=== PATIENT | male | born 1960 | race Caucasian/White ===

== ENCOUNTER → 2023-09-13 14:47 | Outpatient (REF) | payer OTHER, SELFPAY | LOC: MRI 3T 14:47 | PROVIDERS: ATTENDING PHYSICIAN Physician Assistant Surgical; FAMILY PHYSICIAN Family Medicine | DX: M25.571 Pain in right ankle and joints of right foot (principal) | CPT/HCPCS: 73721 ==

== ENCOUNTER 2024-03-27 03:46 | Inpatient (IN) | payer OTHER, SELFPAY ==
[2024-03-26 22:00] VITALS: BP 84/61
[2024-03-26 22:12] VITALS: BMI 25.3
[2024-03-26 22:31] VITALS: BP 94/60
[2024-03-26 22:33] LABS: % Basophils 0.4 % (0-2); % Eosinophils 1.9 % (0-6); % Immature Granulocytes 0.3 % (0-0.5); % Lymphocytes 25.6 % (20.5-51.1); % Monocytes 7.1 % (1.7-9.3); % Neutrophils 64.7 % (42.2-75.2); Absolute Eosinophils 0.2 10^3/uL (0-0.7); Absolute Lymphocytes 2.8 10^3/uL (1.2-3.4); Absolute Monocytes 0.8 10^3/uL (0.1-0.6); Hematocrit 32.4 % (39.0-52.0); Hemoglobin 11.7 g/dL (13.0-18.0); Mean Corp Hgb Conc. 36.1 g/dL (33.0-37.0); Mean Corpuscular Volume 91.3 fL (80.0-94.0); Mean Platelet Volume 8.7 fL (7.4-10.4); Nucleated Red Blood Cells % 0 % (-); Platelet Count 216 10^3/uL (130-400); Red Blood Cell Count 3.55 10^6/uL (4.70-6.10); Red Cell Dist. Width 12.9 % (11.5-14.5); White Blood Cell Count 10.8 10^3/uL (4.8-10.8)
[2024-03-26 22:58] LABS: ALT (SGPT) 15 U/L (0-50); AST (SGOT) 17 U/L (17-59); Alkaline Phosphatase 63 U/L (38-126); Blood Urea Nitrogen 40 mg/dl (9-20); Calcium 8.8 mg/dl (8.4-10.2); Carbon Dioxide 25 mmol/L (22-30); Chloride 103 mmol/L (98-107); Estimated Creatinine Clearance 107 ml/min; Glucose 133 mg/dl (70-99); Potassium 3.9 mmol/L (3.5-5.1); Sodium 140 mmol/L (135-145); Total Bilirubin 0.3 mg/dl (0.2-1.3); Total Protein 5.1 g/dl (6.3-8.2); eGFR > 60.00
[2024-03-26 23:00] VITALS: BP 93/72
--- NOTE | 2024-03-26 23:46 | ED.GENMED ---
History of Present Illness
General
Chief Complaint: Abdominal Pain
Time Seen by Provider: 03/26/24 23:10
History of Present Illness
History of Present Illness:
63-year-old male without significant past medical history presenting to the emergency department for abdominal pain with nausea and vomiting. Patient reports for the last 3 days he has been having generalized abdominal discomfort. Prior to
arrival, started to have vomiting and dark stools. Denies any usage of blood thinners. Denies any alcohol abuse. Notes that he occasionally takes Aleve, denies any increased NSAID usage. Denies any fever. Denies eating any unusual foods.
Denies chest pain or difficulty breathing. Denies ever having issues like this in the past. Denies additional acute complaints
Past History
Past History
ED Past Medical History: Psychiatric (Anxiety)
ED Past Surgical History: None
Social History
Tobacco: Smoker (Half-pack per day)
Alcohol: Former ('I was an alcoholic and drug addict')
Personal: Single
Employment: Employed
Phy Exam
Physical Exam
Physical Exam:
General: Well-appearing, dry mucous membranes
HEENT: protecting airway
Neck: appears supple
CV: Normal heart rate, regular rhythm, no evidence of cyanosis
Resp: No accessory muscle use, no increased work of breathing, lungs clear to auscultation bilaterally
Abd: Soft and non-distended, tenderness to left lower quadrant without rebound or guarding
Extremities: No deformities, no swelling, no erythema
Neuro: alert, no focal neurologic deficit
: deferred
Rectal: Hemoccult positive stool
Psych: Normal affect
Skin: Intact
Course
Orders/Labs/Results
Orders:
Orders
03/26/24 22:14
EKG [Electrocardiogram (*1)] Urgent
Reason for Study: Abdominal Pain
EKG- Treatment ONCE
03/26/24 22:24
Complete Blood Count/With Diff Urgent
Comprehensive Metabolic Panel Urgent
03/26/24 23:30
CT Abd/pelvis W Iv Cont Urgent
Comment:
Reason For Exam: LLQ pain, hemoccult positive
Prothrombin Time Urgent
Ondansetron Injectable [Zofran] 4 mg IV NOW STA
03/26/24 23:50
0.9% Sodium Chloride 1000 ml [Nss] 1,000 ml IV BOLUS
Abnormal Lab Results
03/26/24
22:24
RBC 3.55 L 10^6/uL
(4.70-6.10)
Hgb 11.7 L g/dL
(13.0-18.0)
Hct 32.4 L %
(39.0-52.0)
MCH 33.0 H pg
(27.0-31.0)
Absolute Neuts (auto) 7.0 H 10^3/uL
(1.4-6.5)
Absolute Monos (auto) 0.8 H 10^3/uL
(0.1-0.6)
BUN 40 H mg/dl
(9-20)
Glucose 133 H mg/dl
(70-99)
Total Protein 5.1 L g/dl
(6.3-8.2)
Albumin 3.0 L g/dl
(3.5-5.0)
03/26/24 22:24
03/26/24 22:24
Vital Signs
Initial and Last Documented VS:
Initial Vital Signs
Temp Pulse BP Pulse Ox
98.0 F 87 84/61 96
03/26/24 22:00 03/26/24 22:00 03/26/24 22:00 03/26/24 22:00
Last Documented Vital Signs
Temp Pulse Resp BP Pulse Ox
98.0 F 94 17 94/60 96
03/26/24 22:00 03/26/24 22:33 03/26/24 22:33 03/26/24 22:31 03/26/24 22:19
MDM/Problems Addressed
MDM/Problems Addressed:
63-year-old male without significant past medical history presenting for abdominal pain, nausea, vomiting, dark stool. Vital signs on arrival significant for mildly low blood pressure.
On exam, patient in no acute distress, however does appear slightly dehydrated with dry mucous membranes. Benign cardiac and pulmonary exam. On abdominal exam, mild tenderness to the left lower quadrant region of the abdomen, without rebound or
guarding. Patient is Hemoccult positive, with concern for GI bleed. Given location of patient's pain, diverticulitis is also a consideration versus diverticulosis. In the setting of low blood pressure, suspected dehydration and volume loss. Will
start on IV fluids. Laboratory analysis obtained prior to my assessment, stable hemoglobin. Will proceed with CT abdominal imaging and continue to closely monitor.
00:30 - CT without acute process. Blood pressure remains low, however maintaining normal MAP. Given concern for GI bleed with low blood pressure, feel patient warrants admission for continued monitoring and GI consultation.
*Critical Care Note
Total Time (30-74mins, 75-104mins- exclusive of procedures): Not Applicable
ED Attending Note
-
Portions of this chart may have been created with voice recognition software.� Occasional wrong word or��sound alike� substitutions may have occurred due to the inherent limitations of voice recognition software.
Discharge Plan
Departure
Prescriptions:
No Action
pediatric multivitamin 1 EACH tablet,chewable
1 ea PO DAILY
cyclobenzaprine 10 MG tablet
10 mg PO TIDPRN PRN (Reason: muscle spasms/tightness) Qty: 30 0RF
ibuprofen 800 MG tablet
800 mg PO TIDPRN PRN (Reason: pain) Qty: 30 0RF
Referrals:
Luis Fernando Gonzalez DO [Family Provider] -
Interventions
Interventions:
*Risk Screen - Suicide Last Done: 03/26/24 22:19
*General Assessment Last Done: 03/26/24 22:15
*Neglect/Abuse Screening Last Done: 03/26/24 22:19
ED- Fall Risk Assessment Last Done: 03/26/24 22:19
*ED COVID-19 Vaccine History Last Done: 03/26/24 22:15
HX-Yteinw-Ayiotzsonr Assessment Last Done: 03/26/24 22:19
Discharge Date and Time
Print Language: ESTONIAN
[2024-03-27] VITALS (12 sets, daily range): BP systolic 96–130; BP diastolic 61–96; PULSE 74–101; BMI 24.6
[2024-03-27] MEDS: NSS 1000 IV (00:11)
[2024-03-27] MEDS: ZOFRAN 4 MG IV (00:11)
[2024-03-27 00:38] LABS: INR 1.16; PT 14.8 Sec (11.4-14.6)
--- NOTE | 2024-03-27 02:25 | HPS.HSE ---
Family Physician
-
Family Physician: Luis Fernando Gonzalez
Chief Complaint
-
Abdominal pain
History of Present Illness
This is a 63-year-old male who denies any significant past medical history and comes into the ED with 1 day episode of emesis and dark stool.
Patient reported he had about 4 days of abdominal pain localized to the umbilical region. He denies reflux symptoms, nausea until the day of admission. Patient denies having any fevers or chills. Denies feeling dizzy or lightheaded. Reports a
burning abdominal pain. He denies any radiation of the pain to the back or lower extremities around. He denies any dysuria hematuria. On day of admission patient reported that he had 1 episode of dark emesis followed by black stool. In the ED
the patient had a positive Hemoccult on rectal examination. He denies any NSAID use. He denies alcohol use. He denies any aspirin or anticoagulation. Patient reports occasional episodes of heartburn in the past. He denies any prior endoscopy.
He had a colonoscopy for routine screening with no significant abnormalities.
In the ED blood pressure was 104/60. He was otherwise stable. His hemoglobin was 11.7 with a platelet count of 216. INR 1.1. Chemistries notable for a BUN of 40 with a creatinine of 0.7. CT of the abdomen pelvis showed no acute abnormalities,
specifically no perforation, diverticulitis, peritonitis or obstruction. Patient did have diverticulosis.
Medical History
Past Medical History
Past Medical History: Reports None
Past Surgical History: Reports None
Social History
Tobacco: Former Smoker
Alcohol: None
Drug: None
Personal: Single
Living: Alone
Employment: Not Employed
Family History
Family History: Not pertinent
Allergies / Home Medications
Allergies reflects when Allergies were last updated in [email or web address].
Home Medications with original date entered in [email or web address]
Allergy/Medication List:
Allergies
Allergy/AdvReac Type Severity Reaction Status Date / Time
bupropion HCl Allergy Unknown Unknown Verified 03/26/24 22:13
[From Wellbutrin]
sertraline HCl [From Zoloft] Allergy Unknown Unknown Verified 03/26/24 22:13
ragweed Allergy nasal Uncoded 03/26/24 22:13
symptoms
Home Medications
pediatric multivitamin 1 ea PO DAILY 02/04/14
cyclobenzaprine 10 mg tablet 10 mg PO TIDPRN PRN muscle spasms/tightness #30 tabs 03/13/16
ibuprofen 800 mg tablet 800 mg PO TIDPRN PRN pain #30 tabs 03/13/16
Review of Systems
-
History Source: Patient
Constitutional: Reports No Symptoms
EENT: Reports No Symptoms
Respiratory: Reports No Symptoms
Cardiac: Reports No Symptoms
Abdomen/GI: Reports No Symptoms
: Reports No Symptoms
Musculoskeletal: Reports No Symptoms
Skin: Reports No Symptoms
Neurological: Reports No Symptoms
Endocrine: Reports No Symptoms
Hematologic/Lymphatic: Reports No Symptoms
Psych: Reports No Symptoms
Physical Exam
Vital Signs
Vital Signs
Temp Pulse Resp BP Pulse Ox
98.0 F 78 12 104/68 96
03/26/24 22:00 03/27/24 01:45 03/27/24 01:45 03/27/24 01:43 03/26/24 22:19
Physical Exam
General: No Apparent Distress and Comfortable
HEENT: NormoCephalic, Anicteric, Moist mucous membranes and Atraumatic
Respiratory: Clear
Cardiac: S1/S2 and Regular Rhythm
GI: Soft, Non Distended and Normal Bowel Sounds
Rectal: Hem Positive
Genito-urinary: Deferred by me
Musculoskeletal: No Clubbing, No Cyanosis and No Edema
Skin: Warm
Neuro: AO x 3
Hematologic/Lymphatic: No Lymphadenopathy
Psych: Calm
Laboratory Results
-
03/26/24 22:24
03/26/24 22:24
Laboratory Results
PT 14.8 Sec (11.4-14.6) H 03/27/24 00:10
INR 1.16 03/27/24 00:10
Total Bilirubin 0.3 mg/dl (0.2-1.3) 03/26/24 22:24
AST 17 U/L (17-59) 03/26/24 22:24
ALT 15 U/L (0-50) 03/26/24 22:24
Alkaline Phosphatase 63 U/L (38-126) 03/26/24 22:24
Data Reviewed
-
CT Scan: Report Reviewed by me
Medical Tests (Nuc Med, Echo, EKG etc): Image Personally Visualized and interpreted
Lab Data: Labs Reviewed by me
Impression/Plan
-
IMPRESSION:
PLAN:
1. Abdominal pain - suspect peptic ulcer vs gastritis given abdominal pain and dark emesis with hemoccult positive stools. BUN is markedly elevated relative to the creatinine suggestive of upper GI bleed. CT AP is negative. Hemoglobin is 11.7.
SBP is 104 after fluid resuscitation raising concern for significant bleed. No coagulopathy and no history of antiplatelet or NSAID use. No risk factors such as alcohol, caffeine or tobacco.
- admit to med/surg
- npo for now except sips and ice chips
- iv fluids with d5 NS
- ppi iv 80mg now then 40 iv bid
- antacid and antiemetics
- trend h/h
- GI consult
DVT PPX - SCDs
Full Code
[2024-03-27] MEDS: D5/0.45%NACL 1000 IV (04:12)
[2024-03-27] MEDS: PROTONIX IV 80 MG IV (04:13)
[2024-03-27] MEDS: NSS (PRESERVATIVE FREE) 20 ML IV (04:40)
[2024-03-27 06:32] LABS: Hematocrit 32.3 % (39.0-52.0); Hemoglobin 11.2 g/dL (13.0-18.0)
[2024-03-27] MEDS: NSS (PRESERVATIVE FREE) IV (07:26)
--- NOTE | 2024-03-27 10:39 | W.PN.UPDATE ---
Update Note
Progress Note Update
Admitted for intractable abdominal pain.
Patient says this morning he is feeling better. He had a comfortable night. Not much of abdominal symptoms now.
CT of the abdomen pelvis shows thickening of the wall of the mid gastric body to the gastric antrum and probably also the duodenal bulb. GI who are on consult is made aware of this findings. Continue to keep him n.p.o. continue PPI
--- NOTE | 2024-03-27 12:25 | CON.GI ---
Consultation
-
Date/Time Consultation Requested: 03/27/2024, 0350
Date/Time Consultation Performed: 03/27/2024, 1225
Requesting Provider: Dr. Cece Katz
Performing Provider: Dr. Kings Dickson DO
Reason for Consultation: Abd pain, UGIB
Medical History
Chief Complaint / HPI
Chief Complaint: Abd pain, UGIB
History of Present Illness:
Mr Bocanegra is a 63 y.o male with no known significant past medical history who presented to the ED with coffee ground emesis and dark stools concerning for GIB. Gastroenterology has been consulted for further evaluation and management.
Patient states he was in his USOH until earlier this week where he began to experience epigastric abdominal pain four days ago. States he thought it may have been constipation, but his symptoms continued to progress with nausea. Denies any radiating
symptoms or sick contact or other fevers/chills or other constitutional symptoms. His symptoms continued to worsen where he vomited dark, coffee ground emesis. Denies any prior symptoms like this in the past or other bloody vomit. Subsequently had a
dark black tarry bowel movement without blood clots. He is not on any medications and denies any ASA or NSAIDs. No significant EtOH use, notes smoking 1/2 ppd. Denies any chronic reflux, heartburn, dysphagia/odynophagia, previous abdominal pain,
changes in bowel habits or unintentional weight. He denies any prior EGD in the past. Does note a prior colonoscopy about 9 years ago that was reportedly normal without any polyps. Denies any family history of gastrointestinal, colon or other known
GI malignancy. Given his worsening symptoms, he came to the ED for further evaluation.
In the ED adinatannette was afebrile and HD-stable although initial BP soft of 104/60 without compensatory tachycardia. Labs notable for BUN 40 and Lmsw 0.7 with nml LFTs. CBC with Hgb 11.7, plts [address] Abd/pelvis revealed thickening of the
gastric body/antrum and duodenum consistent with gastroduodenitis. Additionally, incidental diverticulosis without diverticulitis and 8 mm hepatic lesion felt 2/2 hemangioma (unchanged from prior CT 05/2023). Patient was admitted to medicine for
further management and started on IV PPI.
Past Medical History
Past Medical History: None
Past Surgical History: None
Social History
Tobacco: Smoker
Alcohol: Occasional
Drug: None
Family History
Family History: Other (Denies any family history of colon or other known GI malignancy)
Allergies / Home Medications
Allergy/AdvReac Type Severity Reaction Status Date / Time
bupropion HCl Allergy Unknown Unknown Verified 03/26/24 22:13
[From Wellbutrin]
sertraline HCl [From Zoloft] Allergy Unknown Unknown Verified 03/26/24 22:13
ragweed Allergy nasal Uncoded 03/26/24 22:13
symptoms
�Medication �Instructions �Recorded
bimatoprost 0.01 % eye drops 1 drp BOTH EYES QPM Eye Condition 03/27/24
(Lumigan)
therapeutic multivitamin 1 tab PO DAILY supplement 03/27/24
Review of Systems
-
All other systems: A 12 pt ROS was Negative except as stated above in HPI
Vital Signs
Temp Pulse Resp BP Pulse Ox
97.2 F 77 12 104/61 97
03/27/24 07:00 03/27/24 07:00 03/27/24 07:00 03/27/24 07:00 03/27/24 07:00
Physical Exam
Exam
General: No Apparent Distress and Comfortable
HEENT: Normocephalic and Other (Dry mucous membranes without oropharyngeal lesions or blood)
Respiratory: Non Labored Respirations
Cardiac: Regular Rhythm
GI: Soft, Non Tender and Non Distended
Musculoskeletal: No Edema
Skin: Warm
Neuro: AO x 3 and Nonfocal/Grossly Intact
Results
WBC 10.8 10^3/uL (4.8-10.8) 03/26/24 22:24
Hgb 11.2 g/dL (13.0-18.0) L 03/27/24 06:21
Hct 32.3 % (39.0-52.0) L 03/27/24 06:21
MCV 91.3 fL (80.0-94.0) 03/26/24 22:24
Plt Count 216 10^3/uL (130-400) 03/26/24 22:24
Absolute Neuts (auto) 7.0 10^3/uL (1.4-6.5) H 03/26/24 22:24
PT 14.8 Sec (11.4-14.6) H 03/27/24 00:10
INR 1.16 03/27/24 00:10
Sodium 140 mmol/L (135-145) 03/26/24 22:24
Potassium 3.9 mmol/L (3.5-5.1) 03/26/24 22:24
Chloride 103 mmol/L (98-107) 03/26/24 22:24
Carbon Dioxide 25 mmol/L (22-30) 03/26/24 22:24
BUN 40 mg/dl (9-20) H 03/26/24 22:24
Creatinine 0.7 mg/dL (0.7-1.3) 03/26/24 22:24
Calcium 8.8 mg/dl (8.4-10.2) 03/26/24 22:24
Total Bilirubin 0.3 mg/dl (0.2-1.3) 03/26/24 22:24
AST 17 U/L (17-59) 03/26/24 22:24
ALT 15 U/L (0-50) 03/26/24 22:24
Alkaline Phosphatase 63 U/L (38-126) 03/26/24 22:24
Diagnostic Image Results:
CT Abd/pelvis w/ IV contrast 03/27/2024: Suggestion of thickening of the wall of the mid gastric body to the gastric antrum, and probably also the duodenal bulb. Findings would suggest gastritis and duodenitis. As warranted, consideration for upper
endoscopy. There is no evidence to suggest perforation and no free intraperitoneal air.
- Of note, this finding was not reported on the preliminary report from [facility] radiology. The patient has been admitted. I communicated this finding by Tony trujillo to Dr. Moody.
- Colonic diverticula with no CT evidence for diverticulitis.
- 8 mm low-density lesion within the liver, which is likely a hemangioma, and is unchanged from unenhanced CT of the chest from June 01, 2023, reassuring that this is benign.
Prior GI Procedures:
EGD: Denies prior EGD
Colonoscopy: Last colonoscopy 9 yrs ago, reportedly normal without polyps (per patient - no records of this)
Assessment / Plan
-
Mr Bocanegra is a 63 y.o male with no known significant past medical history who presented to the ED with coffee ground emesis and dark stools concerning for GIB. Gastroenterology has been consulted for further evaluation and management.
#Coffee Ground Emesis
#Dyspesia
#Normocytic Anemia 2/2 Blood Loss
#Abnormal CT Imaging with Gastroduodenitis
#Diverticulosis
Impression: Patient presenting with dyspepsia, coffee ground emesis and dark heme (+) stools concerning for UGIB. BUN:Lmsw ratio elevated further supporting this. CT Abd/pelvis revealing gastroduodenitis but without any ulceration or other
abnormalities. Hgb stable 11s and without further episodes of coffee ground emesis while in ED. No other NSAIDs, alcohol or other significant risk factors. Etiology suspicious for gastroduodenitis vs gastroduodeneal erosions vs PUD vs malignancy
(doubt clinically). No evidence of GOO on CT imaging. Doubt brisk UGIB given hemodynamics and stable H/h. Would benefit from EGD while inpatient for further evaluation.
Recommendations:
- Okay for CLD, keep NPO at MN
- Agree with IVF to maintain euvolemia
- IV PPI 40 mg BiD
- Trend serial Hgb
- Plan for EGD tomorrow, 03/28/2024, with biopsies for H pylori for further evaluation
- Notify GI if patient were to develop recurrent coffee ground emesis or other concern for brisk GI bleeding
- Will require outpatient GI f/u after discharge
- Rest of care per primary team
Thank you for allowing me to participate in the care of this patient. Please do not hesitate to call for any further questions.
Total Time Spent with Patient (in minutes): 15
Data Reviewed
-
Radiology: Image Personally Visualized and interpreted
-
-
Thank you for consultation and allowing me to participate in the patient's care. Please call the senior telecommunications consultant GI physician during the after hours with any questions or concerns.
[2024-03-27 14:32] LABS: Hematocrit 31.1 % (39.0-52.0); Hemoglobin 11.1 g/dL (13.0-18.0)
[2024-03-27] MEDS: PROTONIX IV 40 MG IV (19:55)
[2024-03-27] MEDS: NSS (PRESERVATIVE FREE) 10 ML IV (19:55)
[2024-03-28] MEDS: D5/0.45%NACL 1000 IV (02:17)
[2024-03-28 07:00] VITALS: BP 102/71
[2024-03-28 07:51] LABS: Hepatitis C Antibody Negative (Negative)
[2024-03-28] MEDS: PROTONIX IV 40 MG IV (08:21)
[2024-03-28] MEDS: NSS (PRESERVATIVE FREE) 10 ML IV (08:25)
[2024-03-28 09:52] VITALS: BP 117/75; BP_SYST 16
[2024-03-28 10:07] VITALS: BP 115/73; BP_SYST 17
[2024-03-28 10:22] VITALS: BP 128/82; BP_SYST 16
--- NOTE | 2024-03-28 11:14 | W.PN.HOSP.TC ---
Addendum entered and electronically signed by Quintin Moody MD 04/01/24 11:53:
Noted to be anemia with Hb around 11 which is suspected sec to acute blood loss breana with active hemetemesis and melena .
Original Note:
Today's Communication/Plan
-
DC
Assessment / Plan
Assessment / Plan
Abdominal pain with hemetemesis and melena -abnormal CT A/P raising concern of gastroduodenitis. HH stable .
HD stable.
EGD today shows
- Normal esophagus.
- Z-line regular, 38 cm from the incisors.
- Acute gastritis in the antrum. Biopsies from the
antrum and body obtained to rule out H pylori.
- Non-bleeding, cratered gastric pyloric channel ulcer
with a clean ulcer base (Clifton Class III). Biopsied
to r/o dysplasia. Source of patient's presentation
- Otherwise, normal stomach on direct and retroflexion
views.
- Erythematous duodenopathy in the duodenal bulb.
- Normal first portion of the duodenum, second portion
of the duodenum and third portion of the duodenum.
- The examination was otherwise normal without any
fresh or old blood throughout the examined upper GI
tract.
suspect symptomatology from gastric pathology. Start on PPI twice a day for 8 weeks and then once a day. Needs repeat endoscopy which was reiterated to him. Follow-up on pathology reports. Avoid all NSAIDs.
If he tolerates diet he will be discharged home
DVT PPX - SCDs
Anticipated Discharge: Today
Subjective/Interval History
-
Date of Service: March 28, 2024
Back from EGD, denies abdo pain , n/v.
Objective Data
-
Vital Signs:
Vital Signs
Temp Pulse Resp BP Pulse Ox
97.5 F 75 16 128/82 98
03/28/24 09:52 03/28/24 10:22 03/28/24 10:22 03/28/24 10:22 03/28/24 10:22
I&O
03/27/24 03/28/24 03/29/24
06:59 06:59 06:59
Intake Total 960 / 960
Balance 960 / 960
Review of Systems
-
Respiratory: Denies Trouble Breathing
Cardiac: Denies Chest Pain
Neuro: Denies Dizzy
Physical Exam
-
General: Comfortable
Respiratory: Non Labored Respirations; Negative Accessory Resp Muscle Use
Cardiac: Regular Rhythm and S1/S2; Negative Tachycardic
GI: Soft and Nontender
Neuro: AO x 3
Data Reviewed
-
Labs: Labs Reviewed by me
--- NOTE | 2024-03-28 11:21 | W.DS.TRANS ---
DC Summary - Behavioral Health Counselor
-
Discharge Instructions:
Discharge Diagnosis/Procedures acute gastritis with clean-based gastric pyloric
channel ulcer; erythematous duodenopathy
Diet Regular
Activity As tolerated
Driving Restrictions As prior to admission
Instructions:
Stand-Alone Forms:
Changes to Home Medications: Yes
Discharge Medications:
DC Medications w/original date entered in [employer]
bimatoprost 0.01 % eye drops (Lumigan) 1 drp BOTH EYES QPM Eye Condition 03/27/24
therapeutic multivitamin 1 tab PO DAILY supplement 03/27/24
pantoprazole 40 mg tablet,delayed release (Protonix) 40 mg PO DAILY #60 tabs 03/28/24
Home Medication Changes
New -Protonix
Pending Results: Yes (Gastric biopsies pending)
--- NOTE | 2024-03-28 11:48 | CM ---
Met with patient at bedside; initial assessment completed
Pharmacy verified: [facility] @ [address] [facility]
Patient reports that he lives alone in a 1st floor apartment; bathroom has tub/shower
PLOF: independent with ambulation, stairs, ADLs; works lighting fixture installer; drives
NO DME
NO SNF or Home Health utilization history
Brother will transport home; patient plans to stay at mother's one floor condo for the night
Plan: Discharge to home; no needs
--- NOTE | 2024-03-28 13:42 | PN.CDI ---
CDI
- -
CDI:
Physician Documentation Request
Admit Date: 03/27/24 03:46
Dear Doctor Fransisco,
Patient presented to the ER with complaining of abdominal pain with nausea and vomiting. 'states to have vomiting and dark stool'
Rectal exam: ' Hemoccult positive stool'
GI consult reports concern for UGIB
Laboratory Tests
03/26/24 03/27/24 03/27/24
22:24 06:21 14:18
Hgb 11.7 L 11.2 L 11.1 L
Hct 32.4 L 32.3 L 31.1 L
Could you please provide a diagnosis that supports the above lab abnormalities and additional evaluation/ monitoring:
Acute blood loss anemia
Anemia other please specify
Abnormal lab values clinically insignificant
Other
Use of terms such as suspected, likely, concern for, or probable (associated with a specific diagnosis that is being evaluated, monitored, or treated as if it exists) are acceptable and can be coded in the inpatient setting, when documented at the
time of discharge.
Thank you,
Ni Bowman RN, BSN
CDI Specialist
tiger text
Please use your independent medical judgment in providing your response.
== END 2024-03-28 13:36 | disposition home or self-care (01) | DRG 378 ==
LOC: 4 WEST ACU 03:46
PROVIDERS: Physician Assistant; ADMITTING PHYSICIAN Internal Medicine; ATTENDING PHYSICIAN Internal Medicine; EMERGENCY PHYSICIAN Student in an Organized Health Care Education/Training Program; FAMILY PHYSICIAN Family Medicine; OTHER PHYSICIAN Student in an Organized Health Care Education/Training Program
PROC: 0DB78ZX Excision of Stomach, Pylorus, Via Natural or Artificial Opening Endoscopic, Diagnostic (ICD-10-PCS; 2024-03-28)
PROC: 0DB68ZX Excision of Stomach, Via Natural or Artificial Opening Endoscopic, Diagnostic (ICD-10-PCS; 2024-03-28)
DX: K29.01 Acute gastritis with bleeding (principal); D62 Acute posthemorrhagic anemia; F17.200 Nicotine dependence, unspecified, uncomplicated; K31.89 Other diseases of stomach and duodenum
CPT/HCPCS: 88305; 74177; 80053; 85014; 85018; 85025; 85610; 86803; 86850; 86900; 86901; 88342; 93005; 96361; 96374; 99285; 99406; Q9967

== ENCOUNTER 2024-12-14 16:19 | Emergency (ER) | payer OTHER, SELFPAY ==
[2024-12-14 16:20] VITALS: BMI 25.9
[2024-12-14 16:29] VITALS: BP 160/98
[2024-12-14 16:58] LABS: % Basophils 0.7 % (0-2); % Eosinophils 2.6 % (0-6); % Immature Granulocytes 0.5 % (0-0.5); % Lymphocytes 36.2 % (20.5-51.1); % Monocytes 6.6 % (1.7-9.3); % Neutrophils 53.4 % (42.2-75.2); Absolute Basophils 0.1 10^3/uL (0-0.2); Absolute Eosinophils 0.2 10^3/uL (0-0.7); Absolute Lymphocytes 3.1 10^3/uL (1.2-3.4); Absolute Monocytes 0.6 10^3/uL (0.1-0.6); Absolute Neutrophils 4.6 10^3/uL (1.4-6.5); Hematocrit 46.6 % (39.0-52.0); Hemoglobin 15.7 g/dL (13.0-18.0); Mean Corp Hgb Conc. 33.7 g/dL (33.0-37.0); Mean Corpuscular Hgb 32.2 pg (27.0-31.0); Mean Corpuscular Volume 95.5 fL (80.0-94.0); Mean Platelet Volume 8.5 fL (7.4-10.4); Nucleated Red Blood Cells % 0 % (-); Platelet Count 229 10^3/uL (130-400); Red Blood Cell Count 4.88 10^6/uL (4.70-6.10); Red Cell Dist. Width 13.2 % (11.5-14.5); White Blood Cell Count 8.6 10^3/uL (4.8-10.8)
[2024-12-14 17:18] LABS: ALT (SGPT) 20 U/L (0-50); AST (SGOT) 21 U/L (17-59); Albumin 4.4 g/dl (3.5-5.0); Alkaline Phosphatase 79 U/L (38-126); Blood Urea Nitrogen 12 mg/dl (9-20); Calcium 9.7 mg/dl (8.4-10.2); Carbon Dioxide 30 mmol/L (22-30); Chloride 107 mmol/L (98-107); Glucose 90 mg/dl (70-99); Lipase 239 U/L (23-300); Potassium 4.5 mmol/L (3.5-5.1); Sodium 142 mmol/L (135-145); Total Bilirubin 0.5 mg/dl (0.2-1.3); Total Protein 7.1 g/dl (6.3-8.2); eGFR > 60.00
[2024-12-14 18:30] VITALS: BP 153/91
[2024-12-14 18:39] LABS: Urine Albumin Negative (Neg - Trace); Urine Bilirubin Negative (Negative); Urine Character Clear (Clear); Urine Color Yellow; Urine Glucose Negative (Negative); Urine Ketone Negative (Negative); Urine Leukocyte Negative (Negative); Urine Nitrite Negative (Negative); Urine Occult Blood 1+ (Negative); Urine Urobilinogen Negative (Neg - 1+)
[2024-12-14 19:02] LABS: Urine Squamous Cell 0-2 /LPF (Few); Urine White Cell 0-2 /HPF (0-5)
[2024-12-14 20:09] VITALS: BP 138/96
--- NOTE | 2024-12-14 20:15 | ED.GENMED ---
History of Present Illness
General
Chief Complaint: Abdominal Pain
Source: patient
Exam Limitations: none
Time Seen by Provider: 12/14/24 18:03
History of Present Illness
History of Present Illness:
64-year-old male who began this morning with pain in the suprapubic region almost at the bone of his pubis. The patient states symptoms started earlier today went to urgent care. He had a urinalysis which was normal and the told him that if
symptoms persist he should come to the emergency department. Patient states pain persisted. He denies any urinary symptoms. No hematochezia. No melena. No diarrhea. No constipation. No dysuria. No urinary frequency. No injury.
Past History
Past History
ED Past Medical History: Psychiatric (Anxiety) and Other (Chronic bronchitis)
ED Past Surgical History: None
Social History
Tobacco: Smoker (Half-pack per day)
Alcohol: Former ('I was an alcoholic and drug addict')
Personal: Single
Employment: Employed
Phy Exam
Physical Exam
Physical Exam:
CONSTITUTIONAL Patient alert and oriented to person, place and time. Well-appearing. Vital signs reviewed.
HEAD atraumatic, normocephalic.
EYES eyelids normal to inspection, Extraocular muscles intact, Conjunctiva normal, Sclera normal.
NECK normal range of motion, Trachea midline, no jugular venous distention.
RESPIRATORY CHEST No respiratory distress noted, Chest expansion equal, Bilateral breath sounds clear.
CARDIOVASCULAR regular rate and rhythm, Heart sounds normal.
ABDOMEN moderate tenderness noted at the pubis. Very minimally tender in the suprapubic area. No distention. Left lower quadrant right lower quadrant
BACK normal inspection, no obvious deformities
UPPER EXTREMITY range of motion normal, Motor strength normal, no cyanosis, no edema.
LOWER EXTREMITY range of motion normal, Motor strength normal, no cyanosis, no edema.
NEURO Speech normal, No focal motor deficits, Glenis coma scale 15, Memory normal, Cranial Nerves intact to screening exam.
SKIN skin warm, dry, and normal in color.
Course
Orders/Labs/Results
Orders:
Orders
12/14/24 16:38
Complete Blood Count/With Diff Urgent
Comprehensive Metabolic Panel Urgent
Lipase Urgent
12/14/24 18:19
CT Abd/pelvis W Iv Cont Urgent
Comment:
Reason For Exam: lower abd pain
12/14/24 18:27
Urinalysis Reflex To Culture Urgent
Date Specimen was Collected: 12/14/24
Time Specimen was Collected: 18:24
Urine Microscopic Reflex Cult Urgent
Abnormal Lab Results
12/14/24 12/14/24
16:38 18:27
MCV 95.5 H fL
(80.0-94.0)
MCH 32.2 H pg
(27.0-31.0)
Creatinine 0.6 L mg/dL
(0.7-1.3)
Ur Occult Blood Reflex 1+ A
(Negative)
Urine RBC 3-6 A /HPF
(0-2)
12/14/24 16:38
12/14/24 16:38
Vital Signs
Initial and Last Documented VS:
Initial Vital Signs
Temp Pulse Resp BP Pulse Ox
98.2 F 70 16 160/98 99
12/14/24 16:29 12/14/24 16:29 12/14/24 16:29 12/14/24 16:29 12/14/24 16:29
Last Documented Vital Signs
Temp Pulse Resp BP Pulse Ox
98.2 F 66 16 138/96 99
12/14/24 20:09 12/14/24 20:09 12/14/24 20:09 12/14/24 20:09 12/14/24 20:09
MDM/Problems Addressed
Differential Diagnosis Includes:
Diverticulitis, UTI, bladder stone, pubic diastasis
MDM/Problems Addressed:
Pelvic pain
*Radiology
Radiology exam reviewed: preliminary read by ED provider (No free air noted) and radiology read reviewed
*Pulse Oximetry
Patient hypoxic: no
*Critical Care Note
Total Time (30-74mins, 75-104mins- exclusive of procedures): Not Applicable
Data Reviewed
Source: patient
Prescriptions/Medications Considered But Not Given:
Consider antibiotics however white count normal and CT fails to show any sort of infectious process. Afebrile
Patient Management
Escalation/DeEscalation of care consider admission/obs:
Patient appears well. Labs, urine and CT grossly unremarkable. Question whether this is more related to his pubic symphysis. Recommended NSAIDs and outpatient follow
Update Note
Update Note:
Patient does add that when he goes to sit up from a laying position it hurts. Question what is coming musculoskeletal where his abdominal muscles attaches fullness. Patient does work in a warehouse. Copy of his CT scan report was given to the
patient for follow-up
ED Attending Note
-
Portions of this chart may have been created with voice recognition software.� Occasional wrong word or��sound alike� substitutions may have occurred due to the inherent limitations of voice recognition software.
Discharge Plan
Departure
Patient Disposition: Home (Routine Discharge)
Date of Disposition: 12/14/24
Time of Disposition: 20:18
Patient with high blood pressure during this ER visit?: Yes
Discharge Problem:
Acute pelvic pain
Instructions: Abdominal Pain
Prescriptions:
No Action
therapeutic multivitamin Tablet
1 tab PO DAILY
Lumigan 0.01 % Drops
1 drp BOTH EYES QPM
pantoprazole [Protonix] 40 mg tablet,delayed release (DR/EC)
40 mg PO DAILY Qty: 60 0RF
Rx Instructions:
Twice a day for 8 weeks and then once a day
Referrals:
LAXMI NORIEGA [Other]
Stand Alone Forms: Return to Work
Activity Restrictions/Additional Instructions:
Return immediately for worsening pain, fevers, vomiting or any other concerns. Please see your doctor next 48 hours for follow-up and reevaluation.
Interventions
Interventions:
*Risk Screen - Suicide Last Done: 12/14/24 18:28
*General Assessment Last Done: 12/14/24 18:28
*Neglect/Abuse Screening Last Done: 12/14/24 18:28
*ED- Fall Risk Assessment Last Done: 12/14/24 18:28
*ED COVID-19 Vaccine History Last Done: 12/14/24 18:28
BI-Osbzdn-Agtugzjqui Assessment Last Done: 12/14/24 18:42
Discharge Date and Time
Print Language: TRINIDADIAN
== END 2024-12-14 20:38 | disposition home or self-care (01) ==
LOC: EMR 16:19
PROVIDERS: EMERGENCY PHYSICIAN Emergency Medicine
DX: R10.2 Pelvic and perineal pain (principal); F17.200 Nicotine dependence, unspecified, uncomplicated
CPT/HCPCS: 99284; 74177; 80053; 81003; 81015; 83690; 85025; Q9967